=== PATIENT | male | born 1970 | race Hispanic/Latino ===

== ENCOUNTER 2018-11-02 07:47 | Day surgery (SDC) | payer BC ==
[~2018-11-02 07:47] MED LIST: MELOXICAM7.5 MG PO; VITAMIN B-12500 MCG PO
[2018-11-02 10:08] VITALS: BP 118/77
== END 2018-11-02 10:20 | disposition home or self-care (01) | DRG 951 ==
LOC: ENDO 07:47
PROVIDERS: ATTEND Surgery
PROC: 0DJD8ZZ Inspection of Lower Intestinal Tract, Via Natural or Artificial Opening Endoscopic (ICD-10-PCS; principal; 2018-11-02)
DX: Z12.11 Encounter for screening for malignant neoplasm of colon (principal)

== ENCOUNTER 2019-12-05 | Emergency (ER) | payer OTHER, BC ==
[2019-12-05 06:59] LABS: HEMATOCRIT 47.3 % (39.0-50.0); HEMOGLOBIN 15.8 g/dl (14.0-18.0); IMMATURE GRANULOCYTES 0.4 % (0.0-5.0); MEAN CELL VOLUME 90.8 fL CALC (80.0-100.0); MEAN CORPUSCULAR HGB 30.3 pG CALC (26.0-32.0); MEAN CORPUSCULAR HGB CONC 33.4 g/L CALC (32.0-36.0); NEUT# 2.96 thou/uL (1.82-7.42); RED BLOOD COUNT 5.21 mill/uL (4.70-6.10)
[2019-12-05 07:25] LABS: ALBUMIN 4.1 g/dL (3.2-5.0); ALKALINE PHOSPHATASE 77 u/l (38-126); ANION GAP 12 (6-22 (CALC)); BILIRUBIN, TOTAL 0.4 mg/dL (0.0-1.4); BUN 9 mg/dL (9-20); BUN/CREATININE RATIO 15 (12-20 (CALC)); CARBON DIOXIDE 28 mmol/l (22-30); CHLORIDE 103 mmol/l (95-108); CPK 273 u/l (52-200); CREATININE 0.6 mg/dL (0.7-1.3); ETHYL ALCOHOL 0 mg/dl (0-30); GFR > 60 ML/MIN (>=60 (CALC)); GFR FOR AFR.AMER. > 60 ML/MIN (>=60 (CALC)); SGOT/AST 30 u/l (17-59); SODIUM 138 mmol/l (137-146); TOTAL PROTEIN 7.6 g/dL (6.3-8.2)
[2019-12-05 07:27] LABS: POTASSIUM 4.6 mmol/l (3.5-5.1)
[2019-12-05 08:59] LABS: URINE BILIRUBIN - DIPSTICK NEGATIVE (NEGATIVE); URINE BLOOD DIPSTICK NEGATIVE (NEGATIVE); URINE CLARITY CLEAR; URINE COLOR YELLOW; URINE GLUCOSE - DIPSTICK NEGATIVE (NEGATIVE); URINE KETONE NEGATIVE (NEGATIVE); URINE LEUK ESTERASE NEGATIVE (Negative); URINE NITRITE - DIPSTICK NEGATIVE (Negative); URINE PROTEIN - DIPSTICK NEGATIVE (NEG-TRACE); URINE UROBILINOGEN - DIPSTICK 0.2 E.U./dL (0.2)
[2019-12-05 09:03] LABS: COCAINE NEGATIVE (NEGATIVE); TETRAHYDROCANNABIONOL NEGATIVE (NEGATIVE)
[2019-12-05 09:04] LABS: BARBITURATES NEGATIVE (NEGATIVE); METHADONE NEGATIVE (NEGATIVE); OXCYCODONE NEGATIVE (NEGATIVE); TRICYLIC ANTIDEPRESSANTS NEGATIVE (NEGATIVE)
[2019-12-05] MEDS ORDERED: TRAMADOL HYDROC50 MG PO (09:25)
== END 2019-12-05 09:43 | disposition home or self-care (01) | DRG 605 ==
PROVIDERS: Emergency Medicine
DX: S20.212A Contusion of left front wall of thorax, initial encounter (principal); S20.211A Contusion of right front wall of thorax, initial encounter; V43.52XA Car driver injured in collision with other type car in traffic accident, initial encounter; W22.11XA Striking against or struck by driver side automobile airbag, initial encounter; Y92.410 Unspecified street and highway as the place of occurrence of the external cause
CPT/HCPCS: Q9967